=== PATIENT | female | born 1955 ===

== ENCOUNTER 2018-06-08 08:42 | Outpatient (CLI) | payer OTHER ==
[~2018-06-08] VITALS: Ht 121.9 cm; Wt 38.6 kg
== END 2018-06-08 17:00 | disposition home or self-care (01) ==
LOC: OFIC 805 08:42
DX: L43.8 Other lichen planus (principal); C01 Malignant neoplasm of base of tongue

== ENCOUNTER 2022-01-23 12:25 | Outpatient (CLI) | payer OTHER | END 2022-01-23 12:35 | disposition home or self-care (01) | LOC: PPH VACUNA 12:25 | PROVIDERS: ATTEND Emergency Medicine Pediatric Emergency Medicine | DX: Z23 Encounter for immunization (principal) ==